=== PATIENT | male | born 1995 ===

== ENCOUNTER 2019-02-09 22:06 | Emergency (ER) | payer OTHER ==
[2019-02-09 22:20] VITALS: O2SAT 99
[2019-02-09 23:29] LABS: URINE AMORPHOUS SEDIMENT MODERATE /ul (<OCC); URINE BILIRUBIN NEGATIVE (NEGATIVE); URINE BLOOD NEGATIVE (NEGATIVE); URINE CLARITY Hazy (Clear); URINE COLOR Yellow (YELLOW); URINE GLUCOSE (UA) NORMAL (Normal); URINE LEUKOCYTE ESTERASE NEG Leu/uL (Negative); URINE PROTEIN NEGATIVE (NEGATIVE); URINE UROBILINOGEN NORMAL mg/dL (0.2-1.0)
--- NOTE | 2019-02-09 23:39 | C.PDOC ---
History Of Present Illness 23 year old male presents to the ED c/o right sided chest pain described as eating too much. Patient reports feeling much better upon arrival to the ED. Patient also c/o right knee pain which he was evaluated for in the ED before. Patient also c/o having one episode of hematuria. Patient denies fever, chills, nausea, vomit, diarrhea, rash, penile discharge. Time Seen by Provider: 02/09/19 22:26 Chief Complaint (Nursing): Chest Pain History Per: Patient History/Exam Limitations: no limitations Onset/Duration Of Symptoms: Hrs Current Symptoms Are (Timing): Better Context: Food Quality: "Pain" Recent travel outside of the [place]: No Additional History Per: Patient Past Medical History Reviewed: Historical Data, Nursing Documentation, Vital Signs Vital Signs: Last Vital Signs Temp 98.1 F 02/09/19 22:18 Pulse 78 02/09/19 22:18 Resp 20 02/09/19 22:18 BP 132/83 02/09/19 22:18 Pulse Ox 99 02/09/19 22:18 - Medical History PMH: Schizophrenia Denies: Diabetes, Hepatitis, HIV, HTN, Chronic Kidney Disease, Seizures, Sexually Transmitted Disease Surgical History: No Surg Hx Family History: States: Unknown Family Hx - Social History Hx Alcohol Use: Yes Hx Substance Use: No - Immunization History Hx Tetanus Toxoid Vaccination: No Hx Influenza Vaccination: No Hx Pneumococcal Vaccination: No Review Of Systems Constitutional: Negative for: Fever, Chills Eyes: Negative for: Vision Change Cardiovascular: Positive for: Chest Pain. Negative for: Palpitations Respiratory: Negative for: Cough, Shortness of Breath Gastrointestinal: Negative for: Nausea, Vomiting, Abdominal Pain Genitourinary: Positive for: Hematuria Musculoskeletal: Positive for: Leg Pain Skin: Negative for: Rash Neurological: Negative for: Weakness, Numbness, Headache Physical Exam - Physical Exam Appears: Non-toxic, No Acute Distress Skin: Normal Color, Warm, Dry Head: Atraumatic, Normacephalic Eye(s): bilateral: Normal Inspection Oral Mucosa: Moist Neck: Normal ROM, Supple Chest: Symmetrical Cardiovascular: Rhythm Regular Respiratory: Normal Breath Sounds, No Rales, No Rhonchi, No Wheezing Gastrointestinal/Abdominal: Soft, No Tenderness, No Guarding, No Rebound Extremity: Normal ROM, No Tenderness, No Swelling Neurological/Psych: Oriented x3, Normal Speech, Normal Cognition Gait: Steady ED Course And Treatment - Laboratory Results Lab Results: Urine Color Yellow (YELLOW) 02/09/19 23:20 Urine Clarity Hazy (Clear) 02/09/19 23:20 Urine pH 7.0 (5.0-8.0) 02/09/19 23:20 Ur Specific [place] 1.014 (1.003-1.030) 02/09/19 23:20 Urine Protein Negative mg/dL (NEGATIVE) 02/09/19 23:20 Urine Glucose (UA) Normal mg/dL (Normal) 02/09/19 23:20 Urine Ketones Negative mg/dL (NEGATIVE) 02/09/19 23:20 Urine Blood Negative (NEGATIVE) 02/09/19 23:20 Urine Nitrate Negative (NEGATIVE) 02/09/19 23:20 Urine Bilirubin Negative (NEGATIVE) 02/09/19 23:20 Urine Urobilinogen Normal mg/dL (0.2-1.0) 02/09/19 23:20 Ur Leukocyte Esterase Neg Ebenezer/uL (Negative) 02/09/19 23:20 Urine RBC (Auto) 2 /hpf (0-3) 02/09/19 23:20 Amorphous Sediment Moderate /ul (<OCC) H 02/09/19 23:20 Urine Yeast (Budding) Many /hpf (NEGATIVE) H 02/09/19 23:20 ECG: Interpreted By Me, Viewed By Me ECG Rhythm: Sinus Rhythm Rate From EC (BPM) O2 Sat by Pulse Oximetry: 99 (On RA) Pulse Ox Interpretation: Normal - Radiology CXR: Interpreted by Me, Viewed By Me CXR Interpretation: Yes: No Acute Disease. No: Infiltrates Medical Decision Making Medical Decision Making: Assessment: Yeast infection, chest pain Plan: * CXR * Diflucan 150 mg PO * Motrin 600 mg PO * UA Patient's urine showed yeast infection, given diflucan. Patient reports improvement of symptoms remains in NAD. Patient stable for D/C home and advised to follow up with PMD. Disposition - Disposition Disposition: HOME/ ROUTINE Disposition Time: 23:37 Condition: STABLE Additional Instructions: follow up with your doctor within 2 days call to make an appointment take medication as prescribed return to ER if symptoms worsens or progress Prescriptions: Naproxen [Naprosyn] 500 mg PO BID PRN #16 tab PRN Reason: Pain, Moderate (4-7) Instructions: Yeast Infection (DC), Costochondritis (DC) Forms: [facility] (Ugandan), General Discharge Instructions - Clinical Impression Clinical Impression: Yeast detected, Chest wall pain - Scribe Statement The provider has reviewed the documentation as recorded by the Scribe Tao Krishna All medical record entries made by the Scribe were at my direction and personally dictated by me. I have reviewed the chart and agree that the record accurately reflects my personal performance of the history, physical exam, medical decision making, and the department course for this patient. I have also personally directed, reviewed, and agree with the discharge instructions and disposition.
[2019-02-09 23:56] VITALS: BP 135/75; PULSE 72; TEMP 99.4
[2019-02-10 00:11] VITALS: RESP 17
--- NOTE | 2019-02-10 09:25 | RAD ---
Date of service: 02/09/2019 HISTORY: cough COMPARISON: No prior. TECHNIQUE: Chest PA and lateral FINDINGS: LUNGS: No active pulmonary disease. PLEURA: No significant pleural effusion identified. No pneumothorax apparent. CARDIOVASCULAR: No aortic atherosclerotic calcification present. Normal cardiac size. OSSEOUS STRUCTURES: No significant abnormalities. VISUALIZED UPPER ABDOMEN: Normal. OTHER FINDINGS: None. IMPRESSION: No active disease.
--- NOTE | 2019-02-11 20:46 | CARD ---
APPROVED REPORT Date of service: 02/09/2019 EKG Measurement Heart [id number] <Conclusion> Normal sinus rhythm Early repolarization Normal ECG
== END 2019-02-10 00:10 | disposition home or self-care (01) ==
LOC: C.ER 22:06
DX: R07.89 Other chest pain (principal); B37.9 Candidiasis, unspecified

== ENCOUNTER 2019-02-21 05:05 | Emergency (ER) | payer OTHER ==
--- NOTE | 2019-02-21 05:58 | C.PDOC ---
History Of Present Illness 23 year old male presents after waking up with right knee pain. Patient also reports mild pain to the upper back which has since resolved. Denies injury, weakness, or numbness. Time Seen by Provider: 02/21/19 05:31 Chief Complaint (Nursing): Lower Extremity Problem/Injury History Per: Patient History/Exam Limitations: no limitations Onset/Duration Of Symptoms: Mins Current Symptoms Are (Timing): Still Present Recent travel outside of the [place]: No Past Medical History Reviewed: Historical Data, Nursing Documentation, Vital Signs Vital Signs: Last Vital Signs Temp 97.6 F 02/21/19 05:21 Pulse 69 02/21/19 05:21 Resp 20 02/21/19 05:21 BP 125/82 02/21/19 05:21 Pulse Ox 100 02/21/19 05:21 - Medical History PMH: Schizophrenia Denies: Diabetes, Hepatitis, HIV, HTN, Chronic Kidney Disease, Seizures, Sexually Transmitted Disease Family History: States: Unknown Family Hx - Social History Hx Alcohol Use: Yes Hx Substance Use: No - Immunization History Hx Tetanus Toxoid Vaccination: No Hx Influenza Vaccination: No Hx Pneumococcal Vaccination: No Review Of Systems Musculoskeletal: Positive for: Other (Right knee pain) Neurological: Negative for: Weakness, Numbness Physical Exam - Physical Exam Appears: Non-toxic Skin: Normal Color, Warm Head: Atraumatic, Normacephalic Extremity: Normal ROM (x4), No Tenderness, Capillary Refill (<2 seconds), No Deformity, No Swelling Pulses: Left Dorsalis Pedis: Normal, Right Dorsalis Pedis: Normal Neurological/Psych: Oriented x3, Normal Speech, Normal Motor, Normal Sensation Gait: Steady ED Course And Treatment O2 Sat by Pulse Oximetry: 100 (Room air) Pulse Ox Interpretation: Normal Progress Note: Patient resting comfortably in no acute distress, ambulatory with steady gait, vitals are stable, will discharge home with Rx and instructions to follow up with PMD. Disposition Counseled Patient/Family Regarding: Diagnosis, Rx Given - Disposition Referrals: [facility] [Outside] Disposition: HOME/ ROUTINE Disposition Time: 05:52 Condition: STABLE Additional Instructions: Please follow up with PMD Take motrin for pain Return to ER if worse Prescriptions: Ibuprofen [Motrin] 600 mg PO Q6H #20 tab Instructions: Knee Pain (DC) Forms: [employer] (Citizen Of [place]) - Clinical Impression Clinical Impression: Knee pain, right - PA / MIMEOGRAPHER / Resident Statement MD/DO has reviewed & agrees with the documentation as recorded. - Scribe Statement The provider has reviewed the documentation as recorded by the Scribe Tavon Albrecht All medical record entries made by the Lucianibjuan were at my direction and personally dictated by me. I have reviewed the chart and agree that the record accurately reflects my personal performance of the history, physical exam, medical decision making, and the department course for this patient. I have also personally directed, reviewed, and agree with the discharge instructions and d isposition.
[2019-02-21 06:46] VITALS: BP 128/90; PULSE 75; RESP 18; TEMP 98.1
[2019-02-22 03:50] VITALS: O2SAT 100
== END 2019-02-21 06:45 | disposition home or self-care (01) ==
LOC: C.ER 05:05
DX: M25.561 Pain in right knee (principal)

== ENCOUNTER 2019-03-03 13:51 | Emergency (ER) | payer OTHER ==
[2019-03-03 14:15] VITALS: RESP 18
--- NOTE | 2019-03-03 15:50 | C.PDOC ---
History Of Present Illness Patient is a 23 year old male who presents to the ED c/o dark colored urine with associated LUQ pain and nausea. He was seen in the ED on 02/09 and had a normal urinalysis and on 02/21 with a normal workup. He takes 2 Motrin tabs a day for his symptoms. Patient denies any fever, chills, vomiting, diarrhea, CP, or SOB. Time Seen by Provider: 03/03/19 14:42 Chief Complaint (Nursing): Abdominal Pain History Per: Patient History/Exam Limitations: no limitations Current Symptoms Are (Timing): Still Present Recent travel outside of the [place]: No Additional History Per: Patient Past Medical History Reviewed: Historical Data, Nursing Documentation, Vital Signs Vital Signs: Last Vital Signs Temp 98.1 F 03/03/19 14:10 Pulse 89 03/03/19 14:10 Resp 18 03/03/19 14:10 BP 129/87 03/03/19 14:10 Pulse Ox 100 03/03/19 14:10 - Medical History PMH: Schizophrenia Denies: Diabetes, Hepatitis, HIV, HTN, Chronic Kidney Disease, Seizures, Sexually Transmitted Disease Surgical History: No Surg Hx Family History: States: Unknown Family Hx - Social History Hx Alcohol Use: Yes Hx Substance Use: No - Immunization History Hx Tetanus Toxoid Vaccination: No Hx Influenza Vaccination: No Hx Pneumococcal Vaccination: No Review Of Systems Constitutional: Negative for: Fever, Chills Cardiovascular: Negative for: Chest Pain Respiratory: Negative for: Shortness of Breath Gastrointestinal: Positive for: Nausea. Negative for: Vomiting, Diarrhea Genitourinary: Positive for: Other (dark colored urine) Physical Exam - Physical Exam Appears: Non-toxic, No Acute Distress, Other (effeminate thin male) Skin: Warm, Dry Head: Atraumatic, Normacephalic Oral Mucosa: Moist Neck: Normal ROM, Supple Chest: Symmetrical, No Deformity Cardiovascular: Rhythm Regular, No Murmur Respiratory: Normal Breath Sounds, No Rales, No Rhonchi, No Wheezing Gastrointestinal/Abdominal: Soft, No Tenderness, No Distention, No Guarding, No Rebound Extremity: Normal ROM Neurological/Psych: Oriented x3, Normal Speech ED Course And Treatment O2 Sat by Pulse Oximetry: 100 (on RA) Pulse Ox Interpretation: Normal Medical Decision Making Medical Decision Making: Plan: Urinalysis schizophrenia, ? red colored urine no s/s of STD Disposition Doctor Will See Patient In The: Office Counseled Patient/Family Regarding: Studies Performed - Disposition Referrals: [facility] [Outside] [facility] [Outside] [facility] [Outside] [facility] [Outside] [facility] [Outside] Disposition: HOME/ ROUTINE Disposition Time: 15:50 Condition: GOOD Additional Instructions: follow-up with the [facility] for STD eval and PrEP as needed Urinalysis is NORMAL today Instructions: Schizophrenia Forms: [facility] (Gambian) - Clinical Impression Clinical Impression: Schizophrenia, Urine discoloration - Scribe Statement The provider has reviewed the documentation as recorded by the Scribe Isabella Tee All medical record entries made by the Scribe were at my direction and personally dictated by me. I have reviewed the chart and agree that the record accurately reflects my personal performance of the history, physical exam, medical decision making, and the department course for this patient. I have also personally directed, reviewed, and agree with the discharge instructions and disposition.
[2019-03-03 16:05] VITALS: BP 131/74; PULSE 84; TEMP 97.9
[2019-03-03 16:27] LABS: URINE BILIRUBIN NEGATIVE (NEGATIVE); URINE BLOOD NEGATIVE (NEGATIVE); URINE CLARITY Clear (Clear); URINE COLOR Yellow (YELLOW); URINE GLUCOSE (UA) NORMAL (Normal); URINE LEUKOCYTE ESTERASE 1+ Leu/uL (Negative); URINE PROTEIN NEGATIVE (NEGATIVE); URINE UROBILINOGEN NORMAL mg/dL (0.2-1.0)
[2019-03-03 17:18] VITALS: O2SAT 100
== END 2019-03-03 16:04 | disposition home or self-care (01) ==
LOC: C.ER 13:51
DX: F20.9 Schizophrenia, unspecified (principal); N39.9 Disorder of urinary system, unspecified